=== PATIENT | female | born 2000 | race Caucasian/White ===

== ENCOUNTER 2022-11-26 16:27 | Emergency (ER) | payer MEDICAID ==
[~2022-11-26] VITALS: Ht 162.6 cm; Wt 81.6 kg
[2022-11-26 16:48] VITALS: BP 144/82
[2022-11-26] MEDS ORDERED: IBUP-2213 PO (17:32)
[2022-11-26] MEDS ORDERED: BENZ-300 PO (17:32)
--- NOTE | 2022-11-26 17:40 | NUR ---
SWABS WALKED AND HANDED TO LAB
--- NOTE | 2022-11-26 17:41 | NUR ---
Patient discharged with v/s stable. Written and verbal after care instructions ABOUT PHARYNGITIS given and explained. Patient alert, oriented and verbalized understanding of instructions. Ambulatory with steady gait. All questions addressed prior to discharge. ID band removed. Patient advised to follow up with PMD. Rx of CEPACOL, MOTRIN given. Patient educated on indication of medication including possible reaction and side effects. Opportunity to ask questions provided and answered.
== END 2022-11-26 17:39 | disposition home or self-care (01) ==
LOC: MED 16:27
DX: J02.9 Acute pharyngitis, unspecified (principal); R03.0 Elevated blood-pressure reading, without diagnosis of hypertension; Z20.822 Contact with and (suspected) exposure to COVID-19; Z79.899 Other long term (current) drug therapy; Z79.1 Long term (current) use of non-steroidal anti-inflammatories (NSAID)
CPT/HCPCS: 87081; 99283